=== PATIENT | male | born 1945 | race Caucasian/White ===

== ENCOUNTER 2018-03-30 05:51 | Day surgery (SDC) | payer MEDICARE, BC ==
[~2018-03-30] VITALS: Ht 172.7 cm; Wt 90.0 kg
[~2018-03-30 05:51] MED LIST: ALLEGRA ALLERG180 MG PO; ASPI81CH PO; CARV6.25 PO; CENTRUM MEN'S1 EACH PO; CYCL10 PO; FENO145 PO; LISI20 PO; METF500C PO; ONDA4ODT MM; PIOG15 PO; Percocet 5-3251 EACH PO; SIMV40 PO; UBID10
[2018-03-30] MEDS ORDERED: ISOMON20 PO (10:16)
== END 2018-03-30 12:00 | disposition home or self-care (01) ==
LOC: MHTC 05:51
PROC: 4A023N7 Measurement of Cardiac Sampling and Pressure, Left Heart, Percutaneous Approach (ICD-10-PCS; principal; 2018-03-30)
PROC: B211YZZ Fluoroscopy of Multiple Coronary Arteries using Other Contrast (ICD-10-PCS; principal; 2018-03-30)
DX: I25.119 Atherosclerotic heart disease of native coronary artery with unspecified angina pectoris (principal); Z87.891 Personal history of nicotine dependence; E78.00 Pure hypercholesterolemia, unspecified; I10 Essential (primary) hypertension; E78.5 Hyperlipidemia, unspecified; Z95.5 Presence of coronary angioplasty implant and graft; E11.9 Type 2 diabetes mellitus without complications
CPT/HCPCS: 93454; 99152; 99153; C1769; C1894; J1644; J2250; J3010; J7030; Q9967

== ENCOUNTER → 2018-05-15 | Outpatient (CLI) | payer MEDICARE, BC ==
[~2018-05-15] MED LIST changes: +ISOMON20 PO
== END ==
LOC: LAB SHORT 17:06 → LAB 17:06
DX: Z48.817 Encounter for surgical aftercare following surgery on the skin and subcutaneous tissue (principal); L08.9 Local infection of the skin and subcutaneous tissue, unspecified
CPT/HCPCS: 87070; 87077; 87186; 87205

== ENCOUNTER 2019-09-29 17:49 | Observation (INO) | payer MEDICARE, BC ==
[~2019-09-29] VITALS: Ht 172.7 cm; Wt 95.0 kg
[~2019-09-29 17:49] MED LIST changes: -ALLEGRA ALLERG180 MG PO; -ASPI81CH PO; -CARV6.25 PO; -CENTRUM MEN'S1 EACH PO; -FENO145 PO; -ISOMON20 PO; -METF500C PO; -SIMV40 PO; -UBID10
[2019-09-29 18:17] LABS: BASOPHILS ABSOLUTE AUTO 0.04 K/mm3 (0.00-0.23); BASOPHILS PERCENT AUTO 1 % (0-2); EOSINOPHILS ABSOLUTE AUTO 0.18 K/mm3 (0.00-0.68); EOSINOPHILS PERCENT AUTO 3 % (0-6); Hematocrit 42.9 % (37.0-53.0); Hemoglobin 13.9 g/dL (13.5-17.5); IMMATURE GRAN PERCENT AUTO 0 % (0-1); LYMPHOCYTES ABSOLUTE AUTO 2.48 K/mm3 (0.84-5.20); LYMPHOCYTES PERCENT AUTO 41 % (21-46); MONOCYTES ABSOLUTE AUTO 0.55 K/mm3 (0.16-1.47); MONOCYTES PERCENT AUTO 9 % (4-13); Mean Corpuscular HGB 30.2 pg (26.0-34.0); Mean Corpuscular HGB Conc 32.4 g/dL (31.5-36.5); Mean Corpuscular Volume 93 fL (80-100); Mean Platelet Volume 10.8 fL (9.1-12.4); NEUTROPHILS ABSOLUTE AUTO 2.75 K/mm3 (1.96-9.15); NEUTROPHILS PERCENT AUTO 46 % (41-73); Platelet Count 265 K/mm3 (150-400); RDW Coefficient Variation 13.2 % (11.7-14.2); RDW Standard Deviation 44.9 fL (35.1-46.3); Red Blood Cell Count 4.61 M/mm3 (4.30-5.90)
[2019-09-29 18:40] LABS: Alanine Aminotransfer (ALT/SGP 37 U/L (12-78); Albumin, Blood 4.1 g/dL (3.4-5.0); Alk Phos 43 U/L (50-136); Anion Gap 4 mmol/L (6-16); Aspartate Aminotrans (AST/SGOT 25 U/L (12-37); Bilirubin, Total 0.3 mg/dL (0.1-1.0); Blood Urea Nitrogen 24 mg/dL (8-24); Bun/Creatinine Ratio 21.8 (12.0-20.0); CO2, Blood 25 mmol/L (21-32); Calcium, Blood 9.1 mg/dL (8.5-10.1); Chloride, Blood 111 mmol/L (98-108); Glomerular Filtration Rate >60 (60-); Glucose, Blood 136 mg/dL (70-99); Sodium, Blood 140 mmol/L (136-145); Total Protein, Blood 8.1 g/dL (6.4-8.2); Troponin I <0.015 ng/mL (0.000-0.040)
[2019-09-29] MEDS ORDERED: GLIP5 PO (19:20)
[2019-09-29] MEDS ORDERED: LOSARTAN POTASS50 MG PO (19:20)
[2019-09-29] MEDS ORDERED: CARV6.25 PO (19:21)
[2019-09-29] MEDS ORDERED: Isosorbide Mono30 MG PO (19:21)
[2019-09-29] MEDS ORDERED: FENO145 PO (19:22)
[2019-09-29] MEDS ORDERED: METF500C PO (19:24)
[2019-09-29] MEDS ORDERED: Zocor20 MG PO (19:25)
[2019-09-29] MEDS ORDERED: Aspir 8181 MG PO (19:51)
[2019-09-29] MEDS ORDERED: Co Q-10300 MG PO (19:52)
[2019-09-29] MEDS ORDERED: CENTRUM SILVER1 EAC4 PO (19:53)
[2019-09-29] MEDS ORDERED: ALLEGRA ALLERG180 MG PO (19:53)
[2019-09-29] MEDS ORDERED: Magnesium Oxid500 MG PO (19:54)
--- NOTE | 2019-09-29 22:46 | NUR ---
PATIENT IS A NEW ADMIT FROM THE ED. ARRIVED VIA W/C. INDEPENDENT TRANSFER FROM W/C TO BED. DENIES CHEST PAIN, N/V, AND SOB. ON RA. SPOUSE PRESENT ON ADMIT AND LEFT AFTER ASSESSMENT. DR WOODS PRESENT TO ASSESS PATIENT. TELEMETRY PLACED AND TECH REPORTS WANDERING ATRIAL PACED (WAP) AT 58. CBG CHECKED AT 171 THIRTY MINUTES AFTER PATIENT ATE. REPORTED HE DID NOT EAT FOR NINE HOURS. PATIENT ORIENTED TO ROOM AND CALL LIGHT SYSTEM. REFUSING LOVENOX AND SCUDS AT THIS TIME. REPORTED HAD FLU VACCINE. CALL LIGHT IN REACH. WILL CONTINUE TO MONITOR.
--- NOTE | 2019-09-30 03:54 | NUR ---
SHIFT SUMMARY PATIENT HAD NO ACUTE CHANGES OBSERVED. AXOX 4 AND INDEPENDENT. DENIES CHEST PAIN, SOB, AND N/V. RA AND CBG 171. PIV REMAINS INTACT. LIFE SKILLS SPECIALIST REPORTS WANDERING ATRIAL PACER (WAP). VSS/AFBERILE. TROPONINS NEGATIVE. SPOUSE PRESENT ON ADMIT AND LEFT FOR EVENING. COOPERATIVE WITH CARE. PATIENT ABLE TO SLEEP MOST OF THE NIGHT AFTER WATCHING TV. DR WOODS IN FOR ASSESSMENT AFTER ADMIT. PATIENT COOPERATIVE WITH CARE. CALL LIGHT IN REACH. BED IN LOWEST POSITION. WILL CONTINUE TO MONITOR UNTIL DAY SHIFT NURSE ASSUMES CARE.
--- NOTE | 2019-09-30 17:45 | NUR ---
1500 PATIENT DISCHARGED HOME. IV REMOVED, NO SS OF INFECTION NOTED. NURSE WENT OVER MEDS WITH PATIENT AND EDUCATED REGARDING THEM. PATIENT TOLD TO FOLLOW UP WITH PCP. PATIENT WALKED OUT TO WHO WAS TO TAKE HIM HOME.
== END 2019-09-30 15:11 | disposition home or self-care (01) ==
LOC: ER 17:49 → MEDS 17:50
PROVIDERS: Physician Assistant; ADMIT Family Medicine
DX: R07.89 Other chest pain (principal); E11.40 Type 2 diabetes mellitus with diabetic neuropathy, unspecified; I25.10 Atherosclerotic heart disease of native coronary artery without angina pectoris; I10 Essential (primary) hypertension; G56.00 Carpal tunnel syndrome, unspecified upper limb; E78.5 Hyperlipidemia, unspecified; E78.1 Pure hyperglyceridemia; E66.9 Obesity, unspecified; N20.0 Calculus of kidney; D86.89 Sarcoidosis of other sites; Z88.5 Allergy status to narcotic agent; Z79.82 Long term (current) use of aspirin; Z79.899 Other long term (current) drug therapy; Z79.84 Long term (current) use of oral hypoglycemic drugs; Z95.5 Presence of coronary angioplasty implant and graft
CPT/HCPCS: 36415; 71046; 80053; 82947; 83880; 84484; 85025; 85379; 93005; 93010; 93306; 99285-25; G0378

== ENCOUNTER 2020-07-21 19:45 | Emergency (ER) | payer MEDICARE ==
[~2020-07-21] VITALS: Ht 172.7 cm; Wt 93.0 kg
[~2020-07-21 19:45] MED LIST changes: +ALLEGRA ALLERG180 MG PO; +Aspir 8181 MG PO; +CARV6.25 PO; +CENTRUM SILVER1 EAC4 PO; +Co Q-10300 MG PO; +FENO145 PO; +GLIP5 PO; +Isosorbide Mono30 MG PO; +LOSARTAN POTASS50 MG PO; +METF500C PO; +Magnesium Oxid500 MG PO; +Zocor20 MG PO
[2020-07-21 20:15] LABS: BASOPHILS ABSOLUTE AUTO 0.04 K/mm3 (0.00-0.23); BASOPHILS PERCENT AUTO 1 % (0-2); EOSINOPHILS ABSOLUTE AUTO 0.18 K/mm3 (0.00-0.68); EOSINOPHILS PERCENT AUTO 3 % (0-6); Hematocrit 41.8 % (37.0-53.0); Hemoglobin 13.7 g/dL (13.5-17.5); IMMATURE GRAN ABSOLUTE AUTO 0.01 K/mm3 (0.00-0.10); IMMATURE GRAN PERCENT AUTO 0 % (0-1); LYMPHOCYTES ABSOLUTE AUTO 2.63 K/mm3 (0.84-5.20); LYMPHOCYTES PERCENT AUTO 36 % (21-46); MONOCYTES PERCENT AUTO 10 % (4-13); Mean Corpuscular HGB 30.4 pg (26.0-34.0); Mean Corpuscular HGB Conc 32.8 g/dL (31.5-36.5); Mean Corpuscular Volume 93 fL (80-100); NEUTROPHILS ABSOLUTE AUTO 3.66 K/mm3 (1.96-9.15); NEUTROPHILS PERCENT AUTO 51 % (41-73); Platelet Count 299 K/mm3 (150-400); RDW Coefficient Variation 13.2 % (11.7-14.2); RDW Standard Deviation 44.7 fL (35.1-46.3); Red Blood Cell Count 4.51 M/mm3 (4.30-5.90); White Blood Cell Count 7.22 K/mm3 (4.00-11.30)
[2020-07-21 20:35] LABS: Alanine Aminotransfer (ALT/SGP 33 U/L (12-78); Albumin, Blood 3.9 g/dL (3.4-5.0); Alk Phos 47 U/L (50-136); Anion Gap 3 mmol/L (6-16); Aspartate Aminotrans (AST/SGOT 22 U/L (12-37); Bilirubin, Total 0.5 mg/dL (0.1-1.0); Blood Urea Nitrogen 23 mg/dL (8-24); Bun/Creatinine Ratio 16.3 (12.0-20.0); CO2, Blood 26 mmol/L (21-32); Calcium, Blood 9.1 mg/dL (8.5-10.1); Chloride, Blood 110 mmol/L (98-108); Creatinine, Blood 1.41 mg/dL (0.60-1.20); Globulin, Blood 3.9 g/dL (2.2-4.0); Glomerular Filtration Rate 52 (60-); Glucose, Blood 124 mg/dL (70-99); Sodium, Blood 139 mmol/L (136-145); Total Protein, Blood 7.8 g/dL (6.4-8.2); Troponin I <0.015 ng/mL (0.000-0.040)
[2020-07-21] MEDS ORDERED: GABA300 PO ×2 (23:50→23:51)
== END 2020-07-22 02:12 | disposition home or self-care (01) ==
LOC: ER 19:45
PROVIDERS: Physician Assistant
DX: R07.9 Chest pain, unspecified (principal); E86.0 Dehydration; I25.10 Atherosclerotic heart disease of native coronary artery without angina pectoris; I10 Essential (primary) hypertension; E78.5 Hyperlipidemia, unspecified; E11.40 Type 2 diabetes mellitus with diabetic neuropathy, unspecified; Z20.828 Contact with and (suspected) exposure to other viral communicable diseases; Z88.5 Allergy status to narcotic agent; Z79.84 Long term (current) use of oral hypoglycemic drugs; Z79.82 Long term (current) use of aspirin; Z79.899 Other long term (current) drug therapy; Z87.442 Personal history of urinary calculi; Z95.5 Presence of coronary angioplasty implant and graft; Z87.891 Personal history of nicotine dependence
CPT/HCPCS: 36415; 71046; 80053; 83880; 84484; 85025; 93005; 93010; 96360; 96361; 99285-25; J7030; U0003

== ENCOUNTER 2021-04-19 13:22 | Day surgery (SDC) | payer MEDICARE ==
[~2021-04-19] VITALS: Ht 172.7 cm; Wt 91.1 kg
[~2021-04-19 13:22] MED LIST changes: +Bactrim Ds Tab1 EACH PO; +GABA300 PO
== END 2021-04-19 15:40 | disposition home or self-care (01) ==
LOC: ORSCSDS 13:22
PROVIDERS: Student in an Organized Health Care Education/Training Program
PROC: 0DBE8ZX Excision of Large Intestine, Via Natural or Artificial Opening Endoscopic, Diagnostic (ICD-10-PCS; principal; 2021-04-19 14:45)
PROC: 3E0H8KZ Introduction of Other Diagnostic Substance into Lower GI, Via Natural or Artificial Opening Endoscopic (ICD-10-PCS; principal; 2021-04-19 14:45)
DX: R19.5 Other fecal abnormalities (principal); D12.5 Benign neoplasm of sigmoid colon; K64.8 Other hemorrhoids; K64.4 Residual hemorrhoidal skin tags; E11.9 Type 2 diabetes mellitus without complications; I10 Essential (primary) hypertension; Z79.82 Long term (current) use of aspirin; Z79.84 Long term (current) use of oral hypoglycemic drugs
CPT/HCPCS: 82947; 88305; J2704; J7120

== ENCOUNTER 2021-05-20 09:43 | Emergency (ER) | payer MEDICARE ==
[~2021-05-20] VITALS: Ht 172.7 cm; Wt 90.7 kg
== END 2021-05-20 10:35 | disposition home or self-care (01) ==
LOC: ER 09:43
DX: B34.9 Viral infection, unspecified (principal); K21.9 Gastro-esophageal reflux disease without esophagitis; I10 Essential (primary) hypertension; E11.9 Type 2 diabetes mellitus without complications; Z20.822 Contact with and (suspected) exposure to COVID-19; Z79.84 Long term (current) use of oral hypoglycemic drugs; Z79.899 Other long term (current) drug therapy; Z88.5 Allergy status to narcotic agent; Z87.891 Personal history of nicotine dependence
CPT/HCPCS: 93005; 93010; 99284-25

== ENCOUNTER → 2021-05-24 | Outpatient (CLI) | payer MEDICARE ==
[2021-05-24 18:36] LABS: Adenovirus F 40/41 Not Detected (NOT DETECT); Astrovirus Not Detected (NOT DETECT); Campylobacter Sp Not Detected (NOT DETECT); Cryptosporidium Not Detected (NOT DETECT); Cyclospora Cayetanensis Not Detected (NOT DETECT); E. Coli O157 Not Detected (NOT DETECT); Entamoeba Histolytica Not Detected (NOT DETECT); Enteroaggregative E. coli-EAEC Not Detected (NOT DETECT); Enteropathogenic E. coli-EPEC Not Detected (NOT DETECT); Enterotoxigenic E. coli-ETEC Not Detected (NOT DETECT); Giardia Lamblia Not Detected (NOT DETECT); Norovirus GI/GII Not Detected (NOT DETECT); Plesiomonas Shigelloides Not Detected (NOT DETECT); Rotavirus A Not Detected (NOT DETECT); Salmonella Sp Not Detected (NOT DETECT); Sapovirus Not Detected (NOT DETECT); Shiga Toxin-prod E. coli-STEC Not Detected (NOT DETECT); Shigella/Enteroin E. coli-EIEC Not Detected (NOT DETECT); Vibrio Cholerae Not Detected (NOT DETECT); Vibrio Sp Not Detected (NOT DETECT); Yersinia Enterocolitica Not Detected (NOT DETECT)
== END ==
LOC: LAB 14:09 → LAB SHORT 14:09
PROVIDERS: Student in an Organized Health Care Education/Training Program
DX: R19.7 Diarrhea, unspecified (principal)
CPT/HCPCS: 0097U

== ENCOUNTER 2021-06-13 19:41 | Emergency (ER) | payer MEDICARE ==
[~2021-06-13] VITALS: Ht 172.7 cm; Wt 90.7 kg
== END 2021-06-13 21:09 | disposition home or self-care (01) ==
LOC: ER 19:41
DX: U07.1 COVID-19 (principal); I10 Essential (primary) hypertension; D86.9 Sarcoidosis, unspecified; E11.9 Type 2 diabetes mellitus without complications; Z88.5 Allergy status to narcotic agent; Z79.82 Long term (current) use of aspirin; Z79.84 Long term (current) use of oral hypoglycemic drugs; Z79.899 Other long term (current) drug therapy; Z95.5 Presence of coronary angioplasty implant and graft
CPT/HCPCS: 99282

== ENCOUNTER 2021-06-16 14:33 | Emergency (ER) | payer MEDICARE ==
[~2021-06-16] VITALS: Ht 172.7 cm; Wt 83.9 kg
== END 2021-06-16 16:25 | disposition home or self-care (01) ==
LOC: ER 14:33
DX: U07.1 COVID-19 (principal); I10 Essential (primary) hypertension; I25.10 Atherosclerotic heart disease of native coronary artery without angina pectoris; E11.40 Type 2 diabetes mellitus with diabetic neuropathy, unspecified; Z79.84 Long term (current) use of oral hypoglycemic drugs; Z79.899 Other long term (current) drug therapy; Z79.82 Long term (current) use of aspirin; Z88.5 Allergy status to narcotic agent; Z95.5 Presence of coronary angioplasty implant and graft; Z87.891 Personal history of nicotine dependence
CPT/HCPCS: 99283-25; M0243; Q0243

== ENCOUNTER 2022-09-09 06:29 | Emergency (ER) | payer MEDICARE ==
[~2022-09-09] VITALS: Ht 170.2 cm; Wt 94.3 kg
[2022-09-09 08:55] LABS: BASOPHILS ABSOLUTE AUTO 0.05 K/mm3 (0.00-0.23); BASOPHILS PERCENT AUTO 1 % (0-2); EOSINOPHILS ABSOLUTE AUTO 0.15 K/mm3 (0.00-0.68); EOSINOPHILS PERCENT AUTO 3 % (0-6); Hematocrit 41.5 % (37.0-53.0); IMMATURE GRAN ABSOLUTE AUTO 0.01 K/mm3 (0.00-0.10); IMMATURE GRAN PERCENT AUTO 0 % (0-1); LYMPHOCYTES ABSOLUTE AUTO 1.83 K/mm3 (0.84-5.20); LYMPHOCYTES PERCENT AUTO 33 % (21-46); MONOCYTES ABSOLUTE AUTO 0.47 K/mm3 (0.16-1.47); MONOCYTES PERCENT AUTO 8 % (4-13); Mean Corpuscular HGB 30.7 pg (26.0-34.0); Mean Corpuscular HGB Conc 33.7 g/dL (31.5-36.5); Mean Corpuscular Volume 91 fL (80-100); Mean Platelet Volume 11.5 fL (9.1-12.4); NEUTROPHILS ABSOLUTE AUTO 3.11 K/mm3 (1.96-9.15); NEUTROPHILS PERCENT AUTO 55 % (41-73); Platelet Count 229 K/mm3 (150-400); RDW Coefficient Variation 13.2 % (11.7-14.2); RDW Standard Deviation 44.7 fL (35.1-46.3); Red Blood Cell Count 4.56 M/mm3 (4.30-5.90); White Blood Cell Count 5.62 K/mm3 (4.00-11.30)
[2022-09-09 09:07] LABS: Albumin, Blood 3.6 g/dL (3.4-5.0); Albumin/Globulin Ratio 0.9 (0.8-1.8); Bilirubin, Total 0.5 mg/dL (0.1-1.0); Bun/Creatinine Ratio 22.4 (12.0-20.0); Calcium, Blood 8.8 mg/dL (8.5-10.1); Creatinine, Blood 0.98 mg/dL (0.60-1.20); Globulin, Blood 4.2 g/dL (2.2-4.0); Potassium, Blood 4.3 mmol/L (3.5-5.5); Total Protein, Blood 7.8 g/dL (6.4-8.2)
[2022-09-09] MEDS ORDERED: MECL25 PO (09:47)
== END 2022-09-09 10:32 | disposition home or self-care (01) ==
LOC: ER 06:29
PROVIDERS: Emergency Medicine
DX: R42 Dizziness and giddiness (principal); I10 Essential (primary) hypertension; E11.9 Type 2 diabetes mellitus without complications; Z87.891 Personal history of nicotine dependence; Z79.84 Long term (current) use of oral hypoglycemic drugs; Z79.82 Long term (current) use of aspirin; Z79.899 Other long term (current) drug therapy
CPT/HCPCS: 80053; 85025; 93005; 93010; A9270; J7030

== ENCOUNTER 2023-06-13 08:00 | Day surgery (SDC) | payer MEDICARE ==
[~2023-06-13] VITALS: Ht 172.7 cm; Wt 90.3 kg
[2023-06-13] VITALS (12 sets, daily range): BP systolic 120–144; BP diastolic 76–109
[~2023-06-13 08:00] MED LIST changes: +Crestor20 MG PO; +FAMO20 PO; +JARDIANCE10 MG PO; +MECL25 PO; +SITA25T2 PO; +TRADJENTA5 MG PO
[2023-06-13] MEDS ORDERED: MAGNESIUM OXID500 MG PO (08:31)
[2023-06-13] MEDS ORDERED: NITR.4SL SL (08:32)
--- NOTE | 2023-06-13 11:25 | NUR ---
1053 PATIENT RETURNED FROM THE [facility], SBAR RECEIVED FROM Renetta TUTTLE PAITENT PLACED ON THE MONITOR AND CALL LIGHT IN REACH. PATIENT IN A RECLINER AND CALLED TO UPDATE HER ON STATUS. TR BAND IN PLACE TO THE RIGHT RADIAL WITH 11 ML OF AIR IN THE BAND. PLEATH GOOD WITH POSITIVE WAVEFORM. NO PAIN NOTED. NO BLEEDING NO HEMATOMA NOTED. BREAKFAST TRAY SERVED.
--- NOTE | 2023-06-13 13:33 | NUR ---
1255 ALL AIR REMOVED FROM THE TR BAND. NO BLEEDING NOTED. REVIEWED DISCHARGE INSTRUCTIONS WITH THE PATIENT. VVS. PATIENT OFF THE MONITOR. PIV REMOVED FROM THE LEFT AC AND CATH TIP INTACT. PRESSURE DRESSING APPLIED. PATIENT CALLED AND SHE WILL BE HIS CONSTRUCTION CONSULTANT HOME. THE OFFICE WILL CALL HIM WITH HIS FOLLOW UP APPOINTMENT.
--- NOTE | 2023-06-13 13:35 | NUR ---
1325 TR BAND REMOVED AND RIGHT RADIAL SITE CLEANED. CLOTH DOT PLACED TO THE SITE. PATIENT DRESSED AND ALL BELONGINGS GATHERED FOR DISCHARGED. PATEINT SIGNED COPIES FOR DISCHARGE AND HAS HIS OWN COPIES IN HIS POSSESSION.
--- NOTE | 2023-06-13 13:52 | NUR ---
DISCHARGED VIA WHEELCHAIR
== END 2023-06-13 14:14 | disposition home or self-care (01) ==
LOC: MHTC 08:00
DX: I25.10 Atherosclerotic heart disease of native coronary artery without angina pectoris (principal); R94.39 Abnormal result of other cardiovascular function study; I47.29 Other ventricular tachycardia; E78.5 Hyperlipidemia, unspecified; Z88.5 Allergy status to narcotic agent; E11.9 Type 2 diabetes mellitus without complications
CPT/HCPCS: 76937; 93454; 99152; A9270; C1769; C1887; C1894; J1644; J2250; J3010; J7030; J7050; Q9967

== ENCOUNTER 2024-07-08 12:59 | Emergency (ER) | payer MEDICARE ==
[~2024-07-08] VITALS: Ht 172.7 cm; Wt 91.2 kg
[~2024-07-08 12:59] MED LIST changes: +MAGNESIUM OXID500 MG PO; +NITR.4SL SL
[2024-07-08 13:42] LABS: BASOPHILS ABSOLUTE AUTO 0.05 K/mm3 (0.00-0.23); BASOPHILS PERCENT AUTO 1 % (0-2); EOSINOPHILS ABSOLUTE AUTO 0.17 K/mm3 (0.00-0.68); EOSINOPHILS PERCENT AUTO 2 % (0-6); Hematocrit 40.9 % (37.0-53.0); Hemoglobin 13.7 g/dL (13.5-17.5); IMMATURE GRAN ABSOLUTE AUTO 0.02 K/mm3 (0.00-0.10); IMMATURE GRAN PERCENT AUTO 0 % (0-1); LYMPHOCYTES ABSOLUTE AUTO 2.25 K/mm3 (0.84-5.20); LYMPHOCYTES PERCENT AUTO 30 % (21-46); MONOCYTES ABSOLUTE AUTO 0.66 K/mm3 (0.16-1.47); MONOCYTES PERCENT AUTO 9 % (4-13); Mean Corpuscular HGB 30.2 pg (26.0-34.0); Mean Corpuscular HGB Conc 33.5 g/dL (31.5-36.5); Mean Corpuscular Volume 90 fL (80-100); Mean Platelet Volume 10.9 fL (9.1-12.4); NEUTROPHILS ABSOLUTE AUTO 4.39 K/mm3 (1.96-9.15); NEUTROPHILS PERCENT AUTO 58 % (41-73); Platelet Count 192 K/mm3 (150-400); RDW Coefficient Variation 13.3 % (11.7-14.2); RDW Standard Deviation 43.9 fL (35.1-46.3); Red Blood Cell Count 4.53 M/mm3 (4.30-5.90); White Blood Cell Count 7.54 K/mm3 (4.00-11.30)
[2024-07-08 14:15] LABS: Albumin, Blood 3.5 g/dL (3.4-5.0); Albumin/Globulin Ratio 0.8 (0.8-1.8); Bilirubin, Total 0.9 mg/dL (0.1-1.0); Calcium, Blood 9.4 mg/dL (8.5-10.1); Creatinine, Blood 0.88 mg/dL (0.60-1.20); Globulin, Blood 4.2 g/dL (2.2-4.0); Potassium, Blood 4.2 mmol/L (3.5-5.5); Total Protein, Blood 7.7 g/dL (6.4-8.2)
[2024-07-08 19:30] VITALS: BP 108/86
== END 2024-07-08 19:50 | disposition home or self-care (01) ==
LOC: ER 12:59
PROVIDERS: Emergency Medicine
DX: R20.2 Paresthesia of skin (principal); Z45.018 Encounter for adjustment and management of other part of cardiac pacemaker; I10 Essential (primary) hypertension; E11.9 Type 2 diabetes mellitus without complications; Z87.891 Personal history of nicotine dependence; Z79.899 Other long term (current) drug therapy; Z79.82 Long term (current) use of aspirin; Z79.84 Long term (current) use of oral hypoglycemic drugs; Z88.5 Allergy status to narcotic agent
CPT/HCPCS: 71045; 80053; 84484; 85025; 93971; 99284-25